=== PATIENT | female | born 1985 | race Caucasian/White ===

== ENCOUNTER 2023-03-13 09:46 | Emergency (ER) | payer OTHER, SELFPAY ==
[2023-03-13 10:09] VITALS: BP 119/86; PULSE 56; RESP 18; TEMP 36.7; O2SAT 100
--- NOTE | 2023-03-13 10:41 | ED.URI ---
HPI - URI/Sore Throat General Chief Complaint: Upper Respiratory Infection Stated Complaint: throat irritation,congestion Time Seen by Provider: 03/13/23 10:42 History of Present Illness HPI Narrative: 37 y/o female presented for c/o sore throat, nausea, and chills for about 3 days. Also reports diarrhea, but states she attributes this to the med for treating breast cancer which also causes diarrhea. States she traveled recently and someone on the trip was positive for strep throat. Not taking anything for symptoms. Denies vomiting, shortness breath, wheezing or fever. Related Data Home Medications Medication Instructions Recorded Confirmed levothyroxine 50 mcg tablet 50 mcg PO DAILY 06/15/19 03/13/23 (Synthroid) abemaciclib 150 mg tablet 150 mg PO DAILY 03/13/23 03/13/23 (Verzenio) anastrozole 1 mg tablet 1 mg PO DAILY 03/13/23 03/13/23 escitalopram oxalate 10 mg tablet 10 mg PO DAILY 03/13/23 03/13/23 goserelin 3.6 mg subcutaneous 3.6 mg subcut Q28D 03/13/23 03/13/23 implant (Zoladex) Allergies Allergy/AdvReac Type Severity Reaction Status Date / Time No Known Allergies Allergy Verified 03/13/23 10:15 Review of Systems Review of Systems: CONSTITUTIONAL: Denies body aches, fever, chills, or sweats. EYES: Denies visual changes, redness, or discharge. ENT: Reports sore throat denies rhinorrhea, congestion, or otalgia. CARDIOVASCULAR: Denies chest pain, palpitations, or edema. RESPIRATORY: Denies dyspnea. GASTROINTESTINAL: Denies abdominal pain, , vomiting, reports nausea, diarrhea. SKIN: Denies rash, itching, or wounds. MUSCULOSKELETAL: Denies back pain, joint pain, or myalgia. NEUROLOGIC: Denies headache PMFSH Past Medical History Medical History (Updated 03/13/23 @ 11:13 by Mercedez Sexton, ROSI) Breast cancer Exam Narrative: GENERAL: well-appearing, no acute distress. EYES: conjunctivae clear ENT: Mucous membranes moist. TMs pearly danielson with normal light reflex bilaterally; no tragal tenderness. Oropharynx mildly erythematous without lesions. Tonsils not enlarged and without exudate. No drooling, no hoarseness, no trismus, uvula midline. No tripod positioning, hot potato voice, or soft palate swelling. NECK: Supple. No lymphadenopathy CHEST: Clear to auscultation, breath sounds equal. No respiratory distress, speaks in full sentences. HEART: Regular rate and rhythm. No murmur heard. SKIN: Warm, dry, no rash. NEURO: Alert and oriented x3. Course Course Emergency Course: Patient is aware of diagnosis, understands and agrees to treatment plan. Anticipatory guidance given. Patient agrees to follow-up as directed and is aware of reasons to seek care at the emergency department. Portions of this record may have been created with voice recognition software Level of Care: Express Care Visit Vital Signs Vital signs: Vital Signs Temperature 98.1 F 03/13/23 10:09 Pulse Rate 56 L 03/13/23 10:09 Respiratory Rate 18 03/13/23 10:09 Blood Pressure 119/86 03/13/23 10:09 Pulse Oximetry 100 03/13/23 10:09 Oxygen Delivery Room Air 03/13/23 10:09 Temperature 98.1 F 03/13/23 10:09 Pulse Rate 56 L 03/13/23 10:09 Respiratory Rate 18 03/13/23 10:09 Blood Pressure 119/86 03/13/23 10:09 Pulse Oximetry 100 03/13/23 10:09 Oxygen Delivery Room Air 03/13/23 10:09 MDM - URI/Sore Throat MDM Narrative Medical decision making narrative: Neg strep result reviewed with pt. Advise supportive treatments. Patient is appropriate for outpatient treatment and follow-up. Differential Diagnosis Differential diagnosis: Likely upper respiratory infection, viral infection and pharyngitis Lab Data Labs: Strep Screen Presumptive Negative *(Reference Range: Negative)* Discharge Plan Discharge Clinical Impression: Viral infection Patient Disposition: Home, Self-Care Condition: Stab
== END 2023-03-13 11:19 | disposition home or self-care (01) ==
PROVIDERS: Emergency Provider Nurse Practitioner Family; PCP Internal Medicine
DX: B34.9 Viral infection, unspecified (principal); C50.919 Malignant neoplasm of unspecified site of unspecified female breast
CPT/HCPCS: 87081; 87880; 99213; G0463